=== PATIENT | female | born 1965 | race Caucasian/White ===

== ENCOUNTER 2016-11-12 09:45 | Emergency (ER) | payer MEDICAID ==
[~2016-11-12] VITALS: Ht 152.4 cm; Wt 61.5 kg
[2016-11-12 10:11] VITALS: Ht 152.4 cm; Wt 61.5 kg
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
[2016-11-12] MEDS ORDERED: NAPR-260 PO (11:29)
== END 2016-11-12 12:05 | disposition home or self-care (01) ==
LOC: FTE 09:45
DX: M94.0 Chondrocostal junction syndrome [Tietze] (principal); Z04.1 Encounter for examination and observation following transport accident
CPT/HCPCS: 71010; 93005; Z7502

== ENCOUNTER 2017-06-03 09:57 | Emergency (ER) | payer MEDICAID ==
[~2017-06-03] VITALS: Wt 62.3 kg
[~2017-06-03 09:57] MED LIST: NAPR-260 PO
[2017-06-03] MEDS ORDERED: TRAM50TA2 PO (11:10)
[2017-06-03] MEDS ORDERED: NAPR-260 PO (11:11)
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
[2017-06-03] MEDS ORDERED: IBUPROFEN 800 MG TAB PO ONE (11:30)
== END 2017-06-03 11:45 | disposition home or self-care (01) ==
LOC: FTE 09:57
DX: M79.605 Pain in left leg (principal); M79.604 Pain in right leg
CPT/HCPCS: Z7502; Z7610; 99283